=== PATIENT | male | born 1980 | race Hispanic/Latino ===

== ENCOUNTER 2017-12-13 15:55 | Emergency (ER) | payer BC, SELFPAY ==
[2017-12-13] MEDS ORDERED: Ketorolac Tromethamine 60 MG/2 ML VIAL ONE (16:08)
== END 2017-12-13 16:35 | disposition home or self-care (01) ==
LOC: BURERS 15:55
DX: L02.211 Cutaneous abscess of abdominal wall (principal); F17.200 Nicotine dependence, unspecified, uncomplicated
CPT/HCPCS: 10060; 96372; J1885